=== PATIENT | male | born 1985 | race Caucasian/White ===

== ENCOUNTER → 2020-05-24 13:15 | Outpatient (BNVA) | payer SELFPAY | PROVIDERS: PCP Family Medicine; Visit Provider Nurse Practitioner | DX: Z79.899 Other long term (current) drug therapy (principal); F41.1 Generalized anxiety disorder | CPT/HCPCS: 80053; 80061; 83036; 84443 ==

== ENCOUNTER 2020-08-16 12:08 | Inpatient (IN) | payer SELFPAY ==
[2020-08-16 12:26] VITALS: BP 134/86; PULSE 125; RESP 18; TEMP 37; O2SAT 89; BMI 35.9
--- NOTE | 2020-08-16 12:50 | PC.NURSE ---
patient states has plan to end his life, several plans. states he would go out in front of a train, overdose on his medication, or get into a tub and slice my femoral artery. patient denies anything that has exacerbated these symptoms, states he has been suicidal off and on for a while but he finally made a comment to a friend which is what lead him here today.
--- NOTE | 2020-08-16 12:55 | W.ED.PSYCH ---
HPI - Psych General: Chief Complaint: Psychiatric Symptoms Stated Complaint: SI Time Seen by Provider: 08/16/20 12:38 History of Present Illness: HPI Narrative: 35-year-old male presents emergency room complaining suicidal ideation. He several years ago he was admitted to psychiatric unit with similar complaint. He does clients identify a particular precipitating event to her particular problem that is causing this. He does have a plan to either jump in front of a train or to take an excessive amount of pills in an attempt to harm himself. He does not done anything to this point. MD complaint: suicidal ideation Onset (ago): hour(s) Duration: constant History of same: Yes Relieving factors: none Exacerbating factors: none Associated psychiatric symptoms: none Associated symptoms: Deny auditory hallucinations, visual hallucinations, delusions, depression, homicidal ideation or racing thoughts Treatments prior to arrival: none If self harm: admits thoughts of self harm and has plan Review of Systems Const: Denies: fever(s), chills, body aches, change in appetite, fatigue or malaise ENMT: Denies: throat pain, ear or mastoid pain, nasal discharge or nasal congestion Card: Denies: chest pain, edema, dyspnea on exertion or orthopnea Resp: Denies: dyspnea, productive cough or non-productive cough GI: Denies: abdominal pain, nausea, vomiting, hematemesis, coffee ground emesis, diarrhea, constipation, bloating, hematochezia or melena : Denies: flank pain, dysuria, urinary frequency or urinary urgency Skin/Breast: Denies: rash or pruritus Psych: Denies: depression, visual hallucinations, auditory hallucinations or homicidal ideation [facility] ED PFSH: Medical History (Updated 08/17/20 @ 14:44 by Oscar John DO) Generalized anxiety disorder Loda use Major depressive disorder, recurrent severe without psychotic features Major depressive disorder, recurrent severe without psychotic features On combination antipsychotic drug therapy Social phobia, unspecified Social History (Updated 08/02/19 @ 14:46 by Berta Rico LPN) Smoking and tobacco status: never smoked Physical Exam Const: COMMON NORMALS: no acute distress GENERAL APPEARANCE: cooperative and comfortable ORIENTATION/CONSCIOUSNESS: Yes awake, Yes oriented to person, Yes oriented to place and Yes oriented to time HENMT: COMMON NORMALS: normocephalic, atraumatic, external ears normal, EAC's normal, TM's normal bilaterally and Normal nasal mucous membranes and turbinates present HEAD & SCALP: normocephalic and atraumatic NOSE: Normal nasal mucous membranes and turbinates present EXTERNAL EAR: Yes external ears normal EXTERNAL AUDITORY CANAL: EAC's normal TYMPANIC MEMBRANE: TM's normal bilaterally Eye: COMMON NORMALS: Equal, round and reactive pupils present, EOMs intact bilaterally, conjunctivae normal and no scleral icterus CONJUNCTIVA: Yes conjunctivae normal PUPIL: Yes Equal, round and reactive pupils present Neck/C-Spine: COMMON NORMALS: full ROM, no lymphadenopathy, supple and no JVD Lymph: LYMPHATIC: no lymphadenopathy noted and no lymphedema noted Resp: COMMON NORMALS: normal respiratory effort, No retractions, No use of accessory muscles and clear to auscultation bilaterally AUSCULTATION: clear to auscultation bilaterally Cardio: COMMON NORMALS: no JVD, regular rate, regular rhythm and No murmurs present (Cardio) RATE: regular rate RHYTHM: regular rhythm GI: COMMON NORMALS: Soft to palpation and No hepatosplenomegaly present AUSCULTATION: Yes normoactive bowel sounds PALPATION: Yes Soft to palpation, No Tenderness to palpation present (GI), No Guarding due to palpation present (GI) and Yes No hepatosplenomegaly present Extremity: COMMON NORMALS: normal to inspection, capillary refill normal, no clubbing, cyanosis or edema, no calf tenderness and no pedal edema Neuro: SENSORIUM/ORIENTATION: Yes oriented to person, Yes oriented to place and Yes oriented to time Psych: THOUGHT CONTENT: No delusions Skin: COMMON NORMALS: no rashes or lesions noted GENERAL SKIN EXAM: no rashes or lesions noted MDM - Psych MDM Narrative: Medical decision making narrative: Patient expresses suicidal ideation discussed with Dr. Quintero. He is willing to be admitted we did not do a 96-hour hold Dr. Quintero will evaluate him on the floor orders have been written Lab Data: Labs: Lab Results 08/16/20 08/16/20 08/16/20 Range/Units 12:48 12:48 12:48 WBC 10.2 H (4.0-10.0) 10^3/ uL RBC 4.99 (4.1-5.3) 10^6/u L Hgb 14.9 (11.7-16.6) g/dL Hct 43.8 (42.0-52.0) % MCV 87.8 (80-94) fL MCH 29.9 (28.0-34.0) pg MCHC 34.0 (30.0-36.0) g/dL RDW 12.8 (12.1-15.1) % Plt Count 337 (130-400) 10^3/c mm MPV 10.1 (7.4-10.4) fL Neut % (Auto) 54.7 % Lymph % (Auto) 34.4 % Eaton % (Auto) 7.6 % Eos % (Auto) 1.4 % Baso % (Auto) 1.3 % Neut # (Auto) 5.57 (1.8-7.7) 10^3/u L Lymph # (Auto) 3.5 (0.8-4.8) 10^3/u L Eaton # (Auto) 0.8 (0.2-0.9) 10^3/u L Eos # (Auto) 0.1 (0.0-0.8) 10^3/u L Baso # (Auto) 0.1 (0.0-0.1) 10^3/u L Nucleated RBC % (a uto) 0 % Nucleated RBCs # 0.0 /100WBC PT 14.00 (12.1-14.9) SECO NDS INR 1.05 (0.8-1.2) Sodium 139 (136-145) mmol/L Potassium 3.6 (3.5-5.1) mmol/L Chloride 104 (98-107) mmol/L Carbon Dioxide 24 (22-29) mmol/L Anion Gap 14.6 (5-19) BUN 8 (6-20) mg/dL Creatinine 1.0 (0.7-1.2) mg/dL GFR Calculation 85.0 L (90-130) mL/min Glucose 105 (65-115) mg/dL Calculated Osmolal ity 287 (285-295) mOsm/k g Calcium 9.9 (8.5-10.5) mg/dL Total Bilirubin 0.4 (0.15-1.2) mg/dL AST 32 (0-40) U/L ALT 65 H (0-41) U/L Alkaline Phosphata se 113 (40-130) IU/L Total Protein 7.3 (6.6-8.7) g/dL Albumin 4.1 (3.5-5.2) g/dL Globulin 3.2 (1.3-4.6) g/dL TSH 3.38 (0.27-4.20) uIU/ mL Urine Color (Yellow) Urine Appearance (CLEAR) Urine pH (5-7) Ur Specific Gravit y (1.005-1.030) Urine Protein (Negative) Urine Glucose (UA) (Normal) Urine Ketones (Negative) Urine Blood (Negative) Urine Nitrate (Negative) Urine Bilirubin (Negative) Urine Urobilinogen (Negative) mg/dL Ur Leukocyte Ene ase (Negative) Salicylates < 0.3 L (3-10) mg/dL Urine Opiates Scre en (Negative) ng/mL Acetaminophen < 5.0 L (10-30) ug/mL Ur Barbiturates Sc reen (Negative) ng/mL Ur Phencyclidine S crn (Negative) ng/mL Ur Amphetamines Sc reen (Negative) ng/mL U Benzodiazepines Scrn (Negative) ng/mL Urine Cocaine Scre en (Negative) ng/mL U Marijuana (THC) Screen (Negative) ng/mL Ethyl Alcohol 107 H (0-10) mg/dL 08/16/20 08/16/20 Range/Units 13:20 13:20 WBC (4.0-10.0) 10^3/ uL RBC (4.1-5.3) 10^6/u L Hgb (11.7-16.6) g/dL Hct (42.0-52.0) % MCV (80-94) fL MCH (28.0-34.0) pg MCHC (30.0-36.0) g/dL RDW (12.1-15.1) % Plt Count (130-400) 10^3/c mm MPV (7.4-10.4) fL Neut % (Auto) % Lymph % (Auto) % Eaton % (Auto) % Eos % (Auto) % Baso % (Auto) % Neut # (Auto) (1.8-7.7) 10^3/u L Lymph # (Auto) (0.8-4.8) 10^3/u L Eaton # (Auto) (0.2-0.9) 10^3/u L Eos # (Auto) (0.0-0.8) 10^3/u L Baso # (Auto) (0.0-0.1) 10^3/u L Nucleated RBC % (a uto) % Nucleated RBCs # /100WBC PT (12.1-14.9) SECO NDS INR (0.8-1.2) Sodium (136-145) mmol/L Potassium (3.5-5.1) mmol/L Chloride (98-107) mmol/L Carbon Dioxide (22-29) mmol/L Anion Gap (5-19) BUN (6-20) mg/dL Creatinine (0.7-1.2) mg/dL GFR Calculation (90-130) mL/min Glucose (65-115) mg/dL Calculated Osmolal ity (285-295) mOsm/k g Calcium (8.5-10.5) mg/dL Total Bilirubin (0.15-1.2) mg/dL AST (0-40) U/L ALT (0-41) U/L Alkaline Phosphata se (40-130) IU/L Total Protein (6.6-8.7) g/dL Albumin (3.5-5.2) g/dL Globulin (1.3-4.6) g/dL TSH (0.27-4.20) uIU/ mL Urine Color Yellow (Yellow) Urine Appearance Clear (CLEAR) Urine pH 5 (5-7) Ur Specific Gravit y 1.025 (1.005-1.030) Urine Protein Neg (Negative) Urine Glucose (UA) 2+ (Normal) Urine Ketones Negative (Negative) Urine Blood Neg (Negative) Urine Nitrate Negative (Negative) Urine Bilirubin Neg (Negative) Urine Urobilinogen Norm (Negative) mg/dL Ur Leukocyte Ene ase Negative (Negative) Salicylates (3-10) mg/dL Urine Opiates Scre en Negative (Negative) ng/mL Acetaminophen (10-30) ug/mL Ur Barbiturates Sc reen Negative (Negative) ng/mL Ur Phencyclidine S crn Negative (Negative) ng/mL Ur Amphetamines Sc reen Negative (Negative) ng/mL U Benzodiazepines Scrn Negative (Negative) ng/mL Urine Cocaine Scre en Negative (Negative) ng/mL U Marijuana (THC) Screen Negative (Negative) ng/mL Ethyl Alcohol (0-10) mg/dL Discharge Plan Discharge Patient Disposition: Admitted As Inpatient Admit Provider: Agustin Quintero Clinical Impression: Suicidal ideation, Generalized anxiety disorder, Depression Condition: Stable Coding Level of Care Code ED Supervisor Receiving And Processing for Shailesh Fwlaura Exam Problem Focused
[2020-08-16 13:04] LABS: Basophils # 0.1 10^3/uL (0.0-0.1); Basophils % 1.3 %; Eosinophils # 0.1 10^3/uL (0.0-0.8); Eosinophils % 1.4 %; Hematocrit 43.8 % (42.0-52.0); Hemoglobin 14.9 g/dL (11.7-16.6); Lymphocytes # 3.5 10^3/uL (0.8-4.8); Lymphocytes % 34.4 %; Mean Corpuscular Hemoglobin 29.9 pg (28.0-34.0); Mean Corpuscular Volume 87.8 fL (80-94); Mean Platelet Volume 10.1 fL (7.4-10.4); Monocytes # 0.8 10^3/uL (0.2-0.9); Monocytes % 7.6 %; Neutrophils # 5.57 10^3/uL (1.8-7.7); Neutrophils % 54.7 %; Nucleated Red Blood Cells % 0 %; Platelet Count 337 10^3/cmm (130-400); Red Blood Count 4.99 10^6/uL (4.1-5.3); Red Cell Distribution Width 12.8 % (12.1-15.1); White Blood Count 10.2 10^3/uL (4.0-10.0)
[2020-08-16 13:17] LABS: INR 1.05 (0.8-1.2)
[2020-08-16 13:30] LABS: Alanine Aminotransferase 65 U/L (0-41); Albumin Level 4.1 g/dL (3.5-5.2); Alcohol Level 107 mg/dL (0-10); Alkaline Phosphatase 113 IU/L (40-130); Anion Gap 14.6 (5-19); Aspartate Amino Transferase 32 U/L (0-40); Blood Urea Nitrogen 8 mg/dL (6-20); Calcium 9.9 mg/dL (8.5-10.5); Carbon Dioxide 24 mmol/L (22-29); Chloride 104 mmol/L (98-107); Globulin 3.2 g/dL (1.3-4.6); Glucose 105 mg/dL (65-115); Osmolality Calculated 287 mOsm/kg (285-295); Potassium 3.6 mmol/L (3.5-5.1); Sodium 139 mmol/L (136-145); Thyroid Stimulating Hormone 3.38 uIU/mL (0.27-4.20); Total Bilirubin 0.4 mg/dL (0.15-1.2); Total Protein 7.3 g/dL (6.6-8.7)
[2020-08-16 13:32] LABS: Add Urine Microscopic? NO
[2020-08-16 13:37] LABS: Bilirubin Urine Neg (Negative); Blood Urine Neg (Negative); Glucose Urine UA 2+ (Normal); Ketones Urine Negative (Negative); Leukocyte Esterase Urine Negative (Negative); Nitrate Urine Negative (Negative); Protein Urine Neg (Negative); Specific Gravity, Urine 1.025 (1.005-1.030); Urine Appearance Clear (CLEAR); Urine Color Yellow (Yellow); Urobilinogen Urine Norm (Negative); pH Urine 5 (5-7)
[2020-08-16 13:43] LABS: Acetaminophen < 5.0 ug/mL (10-30); Salicylate < 0.3 mg/dL (3-10)
[2020-08-16 13:48] VITALS: PULSE 98; RESP 18; O2SAT 95
[2020-08-16 13:49] LABS: Amphetamines Screen Urine Negative (Negative); Barbiturates Screen Urine Negative (Negative); Benzodiazepines Screen Urine Negative (Negative); Cocaine Screen Urine Negative (Negative); Opiate Screen Urine Negative (Negative); PCP Screen Urine Negative (Negative); THC Screen Urine Negative (Negative)
--- NOTE | 2020-08-16 13:55 | PC.NURSE ---
report called to mckayla boucher
[2020-08-16 13:58] VITALS: BP 132/81; PULSE 98; RESP 18; TEMP 37; O2SAT 95
[2020-08-16 14:06] VITALS: BP 134/85; PULSE 103; RESP 18; TEMP 36.7; O2SAT 94
[2020-08-16 21:26] VITALS: BP 117/77; PULSE 89; RESP 17; TEMP 36.7; O2SAT 95
[2020-08-16] MEDS: lithium carbonate 300 mg Capsule PO (21:32)
[2020-08-16] MEDS: PARoxetine 20 mg Tablet PO (21:32)
[2020-08-16] MEDS: trazodone 50 mg Tablet PO (21:32)
[2020-08-16] MEDS: hyDROXYzine 25 mg Capsule 50 MG PO (21:33)
[2020-08-17 06:00] VITALS: BP 144/100; PULSE 92; RESP 17; TEMP 36.7; O2SAT 95
[2020-08-17] MEDS: lithium carbonate 300 mg Capsule PO ×2 (08:07→21:49)
--- NOTE | 2020-08-17 11:51 | PM.NHP ---
Providers/Chief Complaint Admitting Physician: Agustin Quintero MD Primary Care Provider: Yadira Faustin MD Chief Complaint: SI HPI NPU History of Present Illness Antolin Babcock JR is a 35 year old male who presented to the emergency department with the following report: Chief Complaint: Psychiatric Symptoms Stated Complaint: SI Time Seen by Provider: 08/16/20 12:38 History of Present Illness: HPI Narrative: 35-year-old male presents emergency room complaining suicidal ideation. He several years ago he was admitted to psychiatric unit with similar complaint. He does clients identify a particular precipitating event to her particular problem that is causing this. He does have a plan to either jump in front of a train or to take an excessive amount of pills in an attempt to harm himself. He does not done anything to this point. complaint: suicidal ideation Onset (ago): hour(s) Duration: constant History of same: Yes Relieving factors: none Exacerbating factors: none Associated psychiatric symptoms: none Associated symptoms: Deny auditory hallucinations, visual hallucinations, delusions, depression, homicidal ideation or racing thoughts Treatments prior to arrival: none If self harm: admits thoughts of self harm and has plan. He was admitted to the neuropsychiatric unit for definitive treatment of those issues. He presents today reporting that he is ideation. He denies any suicide attempts in the past but reports he has struggled suicidal thoughts. He reports he had a psychiatric hospitalization about 2 years ago. An excerpt from that admission is reviewed below. He does go to [facility] and is current with his therapy and was seen by his medication management provider in June. He reports that he is taking Paxil and lithium and that they initially were effective but he feels they have been less effective recently. We discussed the risks, benefits and alternatives of increasing his medication include agreed to proceed as is documented in this note. He denies smoking cigarettes reports drinking alcohol every once in a while, denies regular marijuana use or any illicit drug use. He has never been to rehab and has never had a DUI. He denies any issues provoking situation from a financial, relational, employment or any other 10 point. He feels the medications became less effective. Psychiatric history: As above. Substance abuse history: As above. Family history: Endorses mental health is both sides of the family, addiction issues he believes on both sides but definitely on his mom side of the family: And reports there have been suicide attempts in his family. He specifically feels his father has had suicide attempts for sure. Developmental history: There were no problems with the , or delivery, learned to walk and talk and met developmental milestones on time, and denies need for speech therapy, learning support, emotional support or special education classes. Psychosocial history: He reports that his mother and father were together when he was [place] [facility] [place]. He reports that he is the middle of their 3 children having an older sister and a younger sister from the same union. Neither parent had any other children outside of that relationship. He reports that his childhood was okay and he denies any emotional, physical or sexual abuse. He graduated from high school. Endorses being a heterosexual with his longest relationship being 7 to 8 years. Is been 1 time, he has a 15-year-old daughter who lives in [place] and he occasionally talks to her on the phone. He is never been in the and endorses that he does have a taoist belief system. He reports that his longest work history is about a year. He currently lives in a house with his girlfriend. Legal history: Denies any significant legal peril in his life. 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 Date of Service: Aug 17, 2018 Chief Complaint: Not really certain. HPI: HPI: The patient is a 33-year-old male admitted on a 96 hour hold for suicidal ideation with various plans to cut his femoral artery/overdose/hanging or drowning himself/jumping off a bridge. Affidavit reviewed on the patient's chart. The patient was acutely intoxicated in the ER with initial alcohol level of 168 and urine drug screen was negative. The patient reports that he was messaging his sister/ [id number] and they called to have pt brought in. Pt reports that he drank 375mL rum yesterday but only drinks sometimes . Reports drinking because it usually helps with panic attacks. He denies any recent triggers/stressors for panic attacks nor depression. However he reports chronic depression with daily suicidal ideation for years because I don't like myself. Psychiatric review of systems: Patient endorses chronic depression, feelings of helplessness, feelings of hopelessness, suicidal ideation, anhedonia, fatigue, agitation poor self-esteem, initial/ middle insomnia. He denies any history of manic episode including hyper/irritable mood nor any homicidal ideation. Denies any hallucinations or paranoia. Does report generalized anxiety worrying about many things much of the time which is difficult to control and adversely affects sleeping concentration. Also endorses history of panic attacks including feeling of impending doom, extremity numbness/ tingling, palpitations, tremors, SOA, vague chest pain, acid reflux and muscle tension, fears having another panic attack but denies overt avoidance of enclosed spaces. Patient does report he avoid social interactions due to social anxiety, fear of being watched him judged by others. Past psychiatric history: History of mental health assessment at [facility] in 2016 with diagnosis of panic disorder. NO current psychiatrist/ therapist. Denies hx SA/psych admissions. Past meds: Xanax when necessary. Past medical history: Talha Danlos, Hx concussion X1, denies seizures, history of appendectomy Family history: Cancer, heart disease, anxiety/depression- parents/ sister, father SA (Klonopin) Social history: single and lives with GF, unemployed, no disability, no kids. High school graduate, no service, denies illicit drug use, alcohol- rare binge, denies tobacco Meds NPU Home Medications Medication Instructions Recorded Confirmed Last Taken Type hydroxyzine HCl 50 mg tablet 50 mg PO BID PRN #60 tab 06/18/20 08/16/20 Unknown Rx lithium carbonate 300 mg capsule 300 mg PO BID #60 cap 06/18/20 08/16/20 08/15/20 Rx Paxil 20 mg PO BEDTIME 08/16/20 08/16/20 08/15/20 History trazodone 50 mg PO BEDTIME 08/16/20 08/16/20 08/15/20 History Allergies Allergy/AdvReac Type Severity Reaction Status Date / Time No Known Allergies Allergy Unverified 08/16/20 12:26 PFS NPU PFSH: Medical History (Updated 08/17/20 @ 14:44 by Oscar John DO) Generalized anxiety disorder Theresa use Major depressive disorder, recurrent severe without psychotic features Major depressive disorder, recurrent severe without psychotic features On combination antipsychotic drug therapy Social phobia, unspecified Social History (Updated 08/02/19 @ 14:46 by DONNA Edmonds Smoking and tobacco status: never smoked Mental Status Exam MSE Comments: This is an obese white male with Limited Grooming and Eye Type. No Abnormal Movements except for Mild Psychomotor Retardation. Cooperative with Exam in Mild Distress. Speech Was Decreased Rate and Volume. Mood Described As Okay, Mood. Thought Process Organized. Thought Content: Patient Denied Any Suicidal or Homicidal Ideation, but Does Report That He Feels at Times That He Just Move Forward Now with Medication Has Tailed off. There Were No Delusions Reported or Noted, He Denied Any Auditory or Visual Hallucinations. Attention and Concentration Were Limited and Memory Appeared Reliable but None Were Formally Tested. He Is Alert and Oriented x3. Insight and Judgment Appear Fair Impulse Is Limited. Vitals/I&O/Wt Last Vital Signs Temp 98.1 F 08/17/20 06:00 Pulse 92 08/17/20 06:00 Resp 17 08/17/20 06:00 BP 144/100 08/17/20 06:00 Pulse Ox 95 08/17/20 06:00 Weight last 48 hrs Weight 113.398 kg Data NPU : 08/16/20 12:48 08/16/20 12:48 A&P Assessment and plan (1) Suicidal ideation: Status: Acute (2) Major depressive disorder, recurrent severe without psychotic features: Status: Acute (3) Social phobia, unspecified: Status: Acute (4) Generalized anxiety disorder: Status: Acute (5) Theresa use: Status: Acute (6) Alcohol use: Status: Acute Additional A&P Information This is a 35-year-old white male with a history of depression, anxiety, active alcohol use with suicidal thinking that has been treated well and followed at [facility] who presents reporting that his medication feels less effective and he was having thoughts to kill himself who presents open to medication adjustment. 1. Continue current medication. We will verify his compliance with medication and increase medication if doses presented are accurate. 2. Continue every 15 minute checks for safety. 3. Encourage individual, group and milieu therapies. 4. Encourage sober living treatment after discharge at the highest level of care to which she is willing to commit. Involuntary Hold Information 96 Hour Hold: 96 Hour Involuntary Admission: No Attestations NPU Medical Necessity Statement*: Inpatient hospitalization is medically necessary and the clinically appropriate intervention at this time. We will monitor medications and make changes as indicated. Patient will be in the hospital for over two midnights. Likely length of stay 3 to 5 days. Coding Level of Care Code Acute Bottled Beverage Inspector for Shailesh Russod Diagnoses Suicidal ideation R45.851 Major depressive disorder, recurrent severe without psychotic features F33.2 Social phobia, unspecified F40.10 Generalized anxiety disorder F41.1 Theresa use Z79.899 Alcohol use Z72.89
[2020-08-17 14:00] VITALS: BP 125/86; PULSE 96; RESP 18; TEMP 36.6; O2SAT 96
[2020-08-17] MEDS: hyDROXYzine 25 mg Capsule 50 MG PO (21:49)
[2020-08-17] MEDS: PARoxetine 20 mg Tablet PO (21:49)
[2020-08-17] MEDS: trazodone 50 mg Tablet PO (21:49)
[2020-08-17] MEDS: acetaminophen 325 mg Tablet 650 MG PO (21:50)
[2020-08-17 22:00] VITALS: BP 155/96; PULSE 88; RESP 16; TEMP 36.9; O2SAT 97
--- NOTE | 2020-08-18 01:57 | PC.NURSE ---
Abrasion bandaged Pt complaint of pain from fall prior to admission. Pt scraped his knee cap and just below that point of contact had a small cut that is covered by a black scab, the edges are red, hot to touch. Applied bandages to keep the wounds from weeping and soiling scrub bottoms.
--- NOTE | 2020-08-18 05:39 | PC.NURSE ---
PM Assessment Pt has been in room most of the shift. Pt reports pain at a 8 with little relief from tylenol 650mg po, pt Denies HI/SI at this time. Pt did contract to safety and agree to consult nurse if any s/s worsened. He states, I have not felt that way since this morning, it is much better. Pt asked the nurse to address two abrasions that are on his left knee and two inches below the knee. Pt fell prior to admission. The wound on the knee is about the size of a quarter and was oozing, nurse placed regular large bandages over both sites of injury. The second site, the one below the knee is about 2 inches across, topped by a black scabbed area, the edges of the scab are red/irritated, the area is the same temperature as the rest of his body. No heat from the wound, no streaks noted, and patient tolerated care. Pt is afraid to shower, he said the pain in my joints releases, then floods back, my ankles give way, and I fall . Pt says that his back and hips hurt most of the time with a baseline of 7 on 1-10 scale. Pt states, Motrin works better for me most of the time. pt may benefit from triple antibiotic ointment for knee abrasions also. Pt reports having a chronic joint/muscle disease. Nurse was not able to ascertain the name of the disorder from the patient,. Pt would like to shower in the morning.
[2020-08-18 06:00] VITALS: BP 156/91; PULSE 79; RESP 18; TEMP 36.5; O2SAT 97
[2020-08-18] MEDS: lithium carbonate 300 mg Capsule PO ×3 (08:32→21:00)
[2020-08-18 13:47] VITALS: BP 119/67; PULSE 72; RESP 18; TEMP 36.7
--- NOTE | 2020-08-18 18:57 | PM.NPN ---
Subjective NPU Subjective: Interval history: Antolin presents today reporting that he is feeling okay. We discussed my review of his medications and he agreed with an increase in his lithium to 300 in the morning and 600 at night and increasing his Paxil to 40 mg after discussion of the risks, benefits and alternatives of the medication. He reports connecting with his outpatient supports and being hopeful that he feels better. Mental Status Exam MSE Comments: This obese white male in hospital scrubs with limited grooming and eye contact. No abnormal movements except for mild psychomotor retardation. Cooperative with exam in mild distress. Speech was decreased rate and volume. Mood is okay affect still subdued. Thought process organized. Thought content: Patient denied suicidal or homicidal ideation but continued with a PET wish, there were no delusions reported or noted, he denied any auditory or visual hallucinations. Attention and concentration were intact and memory appeared mostly reliable but none were formally tested. He alert oriented x3. Insight and judgment are limited but improving impulse control appears limited. Vitals/I&O/Wt Last Vital Signs Temp 98.1 F 08/18/20 20:40 Pulse 87 08/18/20 20:40 Resp 17 08/18/20 20:40 BP 128/63 08/18/20 20:40 Pulse Ox 99 08/18/20 20:40 Data NPU : 08/16/20 12:48 08/16/20 12:48 A&P Additional A&P Information (1) Suicidal ideation: (2) Major depressive disorder, recurrent severe without psychotic features: (3) Social phobia, unspecified: (4) Generalized anxiety disorder: (5) [place] use: (6) Alcohol use: Additional A&P Information This is a 35-year-old white male with a history of depression, anxiety, active alcohol use with suicidal thinking that has been treated well and followed at [facility] who presents reporting that his medication feels less effective and he was having thoughts to kill himself who presents open to medication adjustment. 1. Continue current medication. Increase lithium to 300 mg every morning and 600 mg at night and increase Paxil to to 40 milligrams nightly 2. Continue every 15 minute checks for safety. 3. Encourage individual, group and milieu therapies. 4. Encourage sober living treatment after discharge at the highest level of care to which he is willing to commit. Involuntary Hold Information 96 Hour Hold: 96 Hour Involuntary Admission: No Attestations NPU Medical Necessity Statement*: Inpatient hospitalization is medically necessary and the clinically appropriate intervention at this time. We will monitor medications and make changes as indicated. Likely length of stay 2-4 days. Coding Level of Care Code Acute Family And Consumer Sciences Professor for Shailesh Kasper
[2020-08-18 20:40] VITALS: BP 128/63; PULSE 87; RESP 17; TEMP 36.7; O2SAT 99
[2020-08-18] MEDS: PARoxetine 20 mg Tablet 40 MG PO (20:54)
[2020-08-18] MEDS: trazodone 50 mg Tablet PO (20:55)
[2020-08-18] MEDS: acetaminophen 325 mg Tablet 650 MG PO (20:55)
[2020-08-19 06:00] VITALS: BP 118/72; PULSE 81; RESP 18; TEMP 36.6; O2SAT 97; BMI 35.9
--- NOTE | 2020-08-19 06:16 | PC.NURSE ---
TRAZODONE/VISTERIL/ @ 2100 PT RECEIVED TRAZODONE 50MG PO, VISTERIL 50MG PO, TYLENOL 650MG PO GIVEN FOR INSOMNIA, ANXIETY, result sleep, reduction of anxiety, @2320 result, pt slept and experienced less anxiety. AND REDUCTION IN PAIN
[2020-08-19] MEDS: lithium carbonate 300 mg Capsule PO (09:27)
[2020-08-19 13:49] VITALS: BP 151/90; PULSE 104; RESP 18; TEMP 36.8
--- NOTE | 2020-08-19 14:58 | PM.NDC ---
Diagnoses at Discharge Discharge Diagnosis (1) Suicidal ideation: Status: Resolved (2) Major depressive disorder, recurrent severe without psychotic features: Status: Acute (3) Social phobia, unspecified: Status: Acute (4) Generalized anxiety disorder: Status: Acute (5) [place] use: Status: Acute (6) Alcohol use: Status: Acute Reason for Visit Reason for Visit: SI Brief History: History of Present Illness Antolin Babcock JR is a 35 year old male who presented to the emergency department with the following report: Chief Complaint: Psychiatric Symptoms Stated Complaint: SI Time Seen by Provider: 08/16/20 12:38 History of Present Illness: HPI Narrative: 35-year-old male presents emergency room complaining suicidal ideation. He several years ago he was admitted to psychiatric unit with similar complaint. He does clients identify a particular precipitating event to her particular problem that is causing this. He does have a plan to either jump in front of a train or to take an excessive amount of pills in an attempt to harm himself. He does not done anything to this point. MD complaint: suicidal ideation Onset (ago): hour(s) Duration: constant History of same: Yes Relieving factors: none Exacerbating factors: none Associated psychiatric symptoms: none Associated symptoms: Deny auditory hallucinations, visual hallucinations, delusions, depression, homicidal ideation or racing thoughts Treatments prior to arrival: none If self harm: admits thoughts of self harm and has plan. He was admitted to the neuropsychiatric unit for definitive treatment of those issues. He presents today reporting that he is ideation. He denies any suicide attempts in the past but reports he has struggled suicidal thoughts. He reports he had a psychiatric hospitalization about 2 years ago. An excerpt from that admission is reviewed below. He does go to [facility] and is current with his therapy and was seen by his medication management provider in June. He reports that he is taking Paxil and lithium and that they initially were effective but he feels they have been less effective recently. We discussed the risks, benefits and alternatives of increasing his medication include agreed to proceed as is documented in this note. He denies smoking cigarettes reports drinking alcohol every once in a while, denies regular marijuana use or any illicit drug use. He has never been to rehab and has never had a DUI. He denies any issues provoking situation from a financial, relational, employment or any other 10 point. He feels the medications became less effective. Psychiatric history: As above. Substance abuse history: As above. Family history: Endorses mental health is both sides of the family, addiction issues he believes on both sides but definitely on his mom side of the family: And reports there have been suicide attempts in his family. He specifically feels his father has had suicide attempts for sure. Developmental history: There were no problems with the , or delivery, learned to walk and talk and met developmental milestones on time, and denies need for speech therapy, learning support, emotional support or special education classes. Psychosocial history: He reports that his mother and father were together when he was born in [facility]. He reports that he is the middle of their 3 children having an older sister and a younger sister from the same union. Neither parent had any other children outside of that relationship. He reports that his childhood was okay and he denies any emotional, physical or sexual abuse. He graduated from high school. Endorses being a heterosexual with his longest relationship being 7 to 8 years. Is been 1 time, he has a 15-year-old daughter who lives in [place] and he occasionally talks to her on the phone. He is never been in the and endorses that he does have a catholic belief system. He reports that his longest work history is about a year. He currently lives in a house with his girlfriend. Legal history: Denies any significant legal peril in his life. 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 Date of Service: Aug 17, 2018 Chief Complaint: Not really certain. HPI: HPI: The patient is a 33-year-old male admitted on a 96 hour hold for suicidal ideation with various plans to cut his femoral artery/overdose/hanging or drowning himself/jumping off a bridge. Affidavit reviewed on the patient's chart. The patient was acutely intoxicated in the ER with initial alcohol level of 168 and urine drug screen was negative. The patient reports that he was messaging his sister/ [id number] and they called to have pt brought in. Pt reports that he drank 375mL rum yesterday but only drinks sometimes . Reports drinking because it usually helps with panic attacks. He denies any recent triggers/stressors for panic attacks nor depression. However he reports chronic depression with daily suicidal ideation for years because I don't like myself. Psychiatric review of systems: Patient endorses chronic depression, feelings of helplessness, feelings of hopelessness, suicidal ideation, anhedonia, fatigue, agitation poor self-esteem, initial/ middle insomnia. He denies any history of manic episode including hyper/irritable mood nor any homicidal ideation. Denies any hallucinations or paranoia. Does report generalized anxiety worrying about many things much of the time which is difficult to control and adversely affects sleeping concentration. Also endorses history of panic attacks including feeling of impending doom, extremity numbness/ tingling, palpitations, tremors, SOA, vague chest pain, acid reflux and muscle tension, fears having another panic attack but denies overt avoidance of enclosed spaces. Patient does report he avoid social interactions due to social anxiety, fear of being watched him judged by others. Past psychiatric history: History of mental health assessment at [facility] in 2016 with diagnosis of panic disorder. NO current psychiatrist/ therapist. Denies hx SA/psych admissions. Past meds: Xanax when necessary. Past medical history: Talha Danlos, Hx concussion X1, denies seizures, history of appendectomy Family history: Cancer, heart disease, anxiety/depression- parents/ sister, father SA (Klonopin) Social history: single and lives with GF, unemployed, no disability, no kids. High school graduate, no service, denies illicit drug use, alcohol- rare binge, denies tobacco Hospital Course Hospital Course Antolin presented to the emergency department with depression and suicidality and he was admitted to the Neuropsychiatric unit for definitive treatment of those issues. He slowly acclimated to the individual, group and milieu therapies. His Paxil was increased as well as his lithium and he showed a significant response. He was able to contract for safety prior to discharge. During the hospitalization, patient had routine laboratory studies which were within normal limits except for few outliers. Additionally there was a general medical evaluation which was also within normal limits and revealed no new acute processes. Discharge Summary: At the time of discharge, he was absent psychosis or lethality. Mood and anxiety were well managed. Patient endorsed a plan to avoid all drugs of abuse and follow-up with the aftercare recommendations of the treatment team. Patient was evaluated and deemed to be absent credible lethality, and had achieved the maximum benefit from an inpatient hospitalization, so was discharged. Involuntary Hold Information 96 Hour Hold: 96 Hour Involuntary Admission: No Mental Status Exam MSE Comments: This obese white male in hospital scrubs with improving grooming and eye contact. No abnormal movements except for resolving mild psychomotor retardation. Cooperative with exam in no acute distress. Speech was more normal rate and volume. Mood described as better affect less subdued. Thought process organized. Thought content: Patient denied suicidal or homicidal ideation, there were no delusions reported or noted, he denied any auditory or visual hallucinations. Attention and concentration were intact and memory appeared mostly reliable but none were formally tested. He alert oriented x3. Insight and judgment are improving impulse control appears limited. Discharge Data Vitals: Last Vital Signs Temp 98.2 F 08/19/20 13:49 Pulse 104 H 08/19/20 13:49 Resp 18 08/19/20 13:49 BP 151/90 08/19/20 13:49 Pulse Ox 97 08/19/20 06:00 Discharge Plan Discharge Patient Disposition: Home Condition: Stable Prescriptions: New lithium carbonate 300 mg Capsule 300 mg PO 2100 30 Days Qty: 30 RF: 1 paroxetine HCl 20 mg Tablet 40 mg PO BEDTIME 30 Days Qty: 60 RF: 1 Continued hydroxyzine HCl 50 mg tablet 50 mg PO BID PRN (Reason: anxiety) 30 Days Qty: 60 RF: 1 lithium carbonate 300 mg capsule 300 mg PO BID 30 Days Qty: 60 RF: 1 Changed trazodone 50 mg tablet 50 mg PO BEDTIME 30 Days Qty: 30 RF: 1 Discontinued paroxetine HCl [Paxil] 20 mg tablet 20 mg PO BEDTIME RF: 0 Discharge Orders: Discharge Order (Routine); Ordered 08/19/20 Ordered By: Agustin Quintero Other Ambulatory Orders: [place] (Routine) Timeframe: 2 Weeks Location: Determined by Patient Ordered By: Agustin Quintero Referrals: Nicolle Flowers PMHNP [Staff Physician] - 08/29/20 9:00 am (Phone visit) Caren Noble MS, PLPC [Therapist] - 08/23/20 8:00 am (Phone visit) Discharge Diet: Regular Discharge Activity: Resume usual activity Discharge Attestations NPU Time Spent in Discharge Care*: less than 30 min Specific Discharge Activities: Specific discharge activities: educating patient, discussing with field case manager/social workers/dc planners, documenting/other paperwork and evaluating patient/reviewing data Coding Level of Care Code Acute [employer] [facility] Fwd Diagnoses Suicidal ideation R45.851 Major depressive disorder, recurrent severe without psychotic features F33.2 Social phobia, unspecified F40.10 Generalized anxiety disorder F41.1 [place] use Z79.899 Alcohol use Z72.89
[2020-08-19 16:10] VITALS: BP 151/90; PULSE 104; RESP 18; TEMP 36.8
== END 2020-08-19 16:39 | disposition home or self-care (01) | DRG 885 ==
LOC: ER 12:38 → NP 13:50
PROVIDERS: Admitting Provider Psychiatry & Neurology Psychiatry; Emergency Provider Family Medicine; PCP Family Medicine; Visit Provider Psychiatry & Neurology Psychiatry
DX: F33.2 Major depressive disorder, recurrent severe without psychotic features (principal); R45.851 Suicidal ideations; F41.1 Generalized anxiety disorder; Z79.899 Other long term (current) drug therapy; F40.10 Social phobia, unspecified; Z72.89 Other problems related to lifestyle
CPT/HCPCS: 12345; 80053; 80306; 80307; 81003; 84443; 85025; 85610; 99284

== ENCOUNTER → 2020-10-19 12:07 | Outpatient (BNVA) | payer OTHER, SELFPAY | PROVIDERS: PCP Family Medicine; Visit Provider Nurse Practitioner | DX: Z79.899 Other long term (current) drug therapy (principal) | CPT/HCPCS: 80178 ==